=== PATIENT | female | born 1950 | race Two or more races ===

== ENCOUNTER 2021-07-31 12:46 | Emergency (ER) | payer MEDICARE, OTHER ==
[~2021-07-31] VITALS: Ht 160 cm; Wt 90.0 kg
[2021-07-31] MEDS ORDERED: GABAPENTIN100 MG PO ×2 (17:03→17:04)
[2021-07-31 17:35] VITALS: BP 187/77
[2021-08-02] MEDS ORDERED: GABAPENTIN100 MG PO (15:18)
== END 2021-07-31 17:35 | disposition home or self-care (01) ==
LOC: ED 12:46
DX: G62.9 Polyneuropathy, unspecified (principal); E78.00 Pure hypercholesterolemia, unspecified

== ENCOUNTER 2024-03-30 10:17 | Inpatient (IN) | payer MEDICARE, OTHER ==
[~2024-03-30] VITALS: Ht 160 cm; Wt 77.1 kg
[2024-03-30] VITALS (46 sets, daily range): BP systolic 73–184; BP diastolic 39–98
[~2024-03-30 10:17] MED LIST: GABAPENTIN100 MG PO
--- NOTE | 2024-03-30 10:21 | NUR ---
PT TO ROOM VIA WC
[2024-03-30] MEDS ORDERED: cefTRIAXone SODIUM 2 GM in SODIUM CHLORIDE 0.9% 100 ML IV ONE (10:35)
[2024-03-30] MEDS ORDERED: AZITHROMYCIN 500 MG in SODIUM CHLORIDE 0.9% 250 ML IV ONE (10:40)
[2024-03-30] MEDS ORDERED: IPRATROPIUM-Albuterol 0.5MG-2.5MG/3 ML NEB ONE ×2 (10:40)
[2024-03-30] MEDS ORDERED: methylPREDNISolone SODIUM SUCC 125 MG/2 ML SDV IV ONE (10:40)
[2024-03-30 10:54] LABS: BASO% 0.3 % (0-3); EOS% 0.7 % (0-8); HEMATOCRIT 39.1 % (37.0-47.0); HEMOGLOBIN 12.4 g/dl (12.0-16.0); IMMATURE GRANULOCYTES 0.5 % (0.0-5.0); LYMPH% 9.9 % (15-41); MEAN CELL VOLUME 85.6 fL CALC (80.0-100.0); MEAN CORPUSCULAR HGB 27.1 pG CALC (26.0-32.0); MEAN CORPUSCULAR HGB CONC 31.7 g/dL CAL (32.0-36.0); MONO% 5.1 % (2-13); NEUT# 9.6 thou/uL (2.00-7.15); NEUT% 83.5 % (42-76); RED BLOOD COUNT 4.57 mill/uL (4.20-5.60); RED CELL DISTRI WIDTH 12.8 % (11.5-15.5)
[2024-03-30 11:05] LABS: ALBUMIN 4.1 g/dL (3.2-5.0); ALKALINE PHOSPHATASE 71 u/l (38-126); ANION GAP 13 (6-22 (CALC)); BILIRUBIN, TOTAL 0.4 mg/dL (0.02-1.3); BUN 14 mg/dL (8-23); BUN/CREATININE RATIO 26 (12-20 (CALC)); CARBON DIOXIDE 23 mmol/l (22-30); CHLORIDE 107 mmol/l (95-108); CREATININE 0.5 mg/dL (0.5-1.0); ESTIMATED GFR 99 ML/MIN (>=90 (CALC)); POTASSIUM 3.9 mmol/l (3.5-5.1); SGOT/AST 29 u/l (9-36); SODIUM 139 mmol/l (137-146); TOTAL PROTEIN 7.4 g/dL (6.3-8.2)
--- NOTE | 2024-03-30 11:27 | NUR ---
PT RESTING NO NEEDS AT THIS TIME
[2024-03-30] MEDS ORDERED: ATORVASTATIN CA10 MG PO (11:44)
[2024-03-30] MEDS ORDERED: VENTOLIN HFA108 MCG (11:44)
[2024-03-30] MEDS ORDERED: AMLODIPINE BESYL5 MG PO (11:45)
[2024-03-30] MEDS ORDERED: LEVOTHYROXIN112 MC1 PO (11:45)
[2024-03-30] MEDS ORDERED: IPRATROPIUM-Albuterol 0.5MG-2.5MG/3 ML NEB PRN (12:00)
[2024-03-30] MEDS ORDERED: ACETAMINOPHEN 325 MG/TAB PO PRN (12:00)
[2024-03-30] MEDS ORDERED: MAGNESIUM HYDROXIDE 30 ML UDC PO PRN (12:00)
[2024-03-30] MEDS ORDERED: SODIUM CHLORIDE 0.9% 1,000 ML IV PRN (12:00)
[2024-03-30] MEDS ORDERED: ALBUTEROL SULFATE 8 GM INH IN PRN (12:55)
--- NOTE | 2024-03-30 13:00 | NUR ---
PT RECEIVED FROM ED. PT AMBULATED TO BATHROOM INDEPENDENTLY. PATIENT IS ON 3 L NC RESTING IN BED WITH SON AT THE BEDSIDE.
--- NOTE | 2024-03-30 14:00 | NUR ---
PT IS LAYING IN BED AWAKE
--- NOTE | 2024-03-30 16:02 | NUR ---
PATIENT IS LAYING IN BED WATCHING TV. GRANDSON AT THE BEDSIDE.
--- NOTE | 2024-03-30 18:07 | NUR ---
PT IS RESTING IN BED WATCHING TV.
--- NOTE | 2024-03-30 20:18 | NUR ---
PT RESTING IN BED WATCHING TV, NO SIGNS OF DISTRESS NOTED, RESP EVEN AND UNLABORED. PT ALERT AND ORIENTED X4, DISCUSSED POC, PT IS ON 02 3L NC, SATS 91% STEAMER TENDER COUGH, INCENTIVE SPIROMETER BROUGHT TO BEDSIDE, EDUCATED ON IT'S USE, DEMONSTRATED IT'S USE AND REACHED 500ML. PT MEDICATED PER SEP, SKIN INTACT, ASSESSMENT COMPLETED, CALL LIGHT IN REACH,POC ONGOING.
[2024-03-30] MEDS ORDERED: ATORVASTATIN CALCIUM 10 MG/TAB PO SCH (21:00)
[2024-03-30] MEDS ORDERED: methylPREDNISolone Sod Succ 40 MG/ML SDV IV SCH (21:00)
[2024-03-30] MEDS ORDERED: ENOXAPARIN SODIUM 40 MG/0.4 ML SYR SC SCH (21:00)
--- NOTE | 2024-03-30 22:00 | NUR ---
NOTED BP ELEVATED, ENTERED ROOM PT RESTING IN BED WITH EYES CLOSED, EASILY AROUSED TO VERBAL STIMULI, BP CUFF OFF, REPLACED. RECHECKED BP, WNL. CALL LIGHT IN REACH, POC ONGOING.
[2024-03-31] VITALS (21 sets, daily range): BP systolic 95–144; BP diastolic 45–81
--- NOTE | 2024-03-31 | NUR ---
PT RESTING IN BED WITH EYES CLOSED, NO SIGNS OF DISTRESS NOTED, RESP EVEN AND UNLABORED. CALL LIGHT IN REACH, POC ONGOING.
--- NOTE | 2024-03-31 02:00 | NUR ---
PT RESTING IN BED WITH EYES CLOSED, NO SIGNS OF DISTRESS NOTED, RESP EVEN AND UNLABORED. CALL LIGHT IN REACH, POC ONGOING.
[2024-03-31] MEDS ORDERED: LEVOTHYROXINE SODIUM 112 MCG/TAB PO SCH (06:00)
--- NOTE | 2024-03-31 06:00 | NUR ---
PT MEDICATED PER MAR, DENIES ANY NEEDS OR COMPLAINTS AT THIS TIME. CALL LIGHT IN REACH, POC ONGOING.
[2024-03-31 08:05] LABS: BASO% 0.1 % (0-3); HEMATOCRIT 36.2 % (37.0-47.0); HEMOGLOBIN 11.7 g/dl (12.0-16.0); IMMATURE GRANULOCYTES 0.5 % (0.0-5.0); LYMPH% 10.1 % (15-41); MEAN CELL VOLUME 86.6 fL CALC (80.0-100.0); MEAN CORPUSCULAR HGB CONC 32.3 g/dL CAL (32.0-36.0); NEUT# 11.4 thou/uL (2.00-7.15); NEUT% 84.3 % (42-76); RED BLOOD COUNT 4.18 mill/uL (4.20-5.60)
[2024-03-31 08:26] LABS: ALBUMIN 3.4 g/dL (3.2-5.0); BILIRUBIN, TOTAL 0.4 mg/dL (0.02-1.3); CREATININE 0.5 mg/dL (0.5-1.0); MAGNESIUM 1.6 mg/dL (1.6-2.3); POTASSIUM 4.5 mmol/l (3.5-5.1); TOTAL PROTEIN 6.6 g/dL (6.3-8.2)
--- NOTE | 2024-03-31 08:38 | NUR ---
PT UP SITTING ON SIDE OF BED EATING BREAKFAST. PATIENT A&OX4. BREATHING UNLABORED ON 3L NC. NO C/O OF PAIN OR SOB. IV IN LAC INFUSING FLUIDS PER EMAR;SITE CLEAN AND INTACT. MORNING MEDS TAKEN WITH NO ISSUES. BED IN LOWEST POSITION. CALL LIGHT WITHIN REACH; PT VERBALIZED UNDERSTANDING OF USE.NO NEEDS AT THIS TIME.
[2024-03-31] MEDS ORDERED: amLODIPine BESYLATE 5 MG/TAB PO SCH (09:00)
[2024-03-31] MEDS ORDERED: AZITHROMYCIN 500 MG in SODIUM CHLORIDE 0.9% 250 ML IV SCH (11:00)
--- NOTE | 2024-03-31 12:19 | NUR ---
PT SITTING UP IN BED EATING LUNCH. BREATHING UNLABORED ON 3L NC. FAMILY AT BEDSIDE. NO C/O OF PAIN OR SOB. BED IN LOWEST POSITION. CALL LIGHT WITHIN REACH;PT VERBALIZED UNDERSTANDING OF USE. NO NEEDS AT THIS TIME.
--- NOTE | 2024-03-31 16:01 | NUR ---
PT LYING IN BED USING INCENITIVE SPIROMETER. PT RE-EDUCATED ON THE CORRECT WAY OF USE AND REPOSITIONED TO HIGH FOWLERS FOR BETTER RESULTS. PT SHOWED UNDERSTANDING BY DEMINSTRATION AND SHOWS IMPROVEMENT WITH USE. PT BUMPED UP FROM 500 TO 1500 A RESULT. FAMILY AT BEDSIDE. BED IN LOWEST POSITION. CALL LIGHT WITHIN REACH. NO NEEDS AT THIS TIME.
--- NOTE | 2024-03-31 20:00 | NUR ---
PT AWAKE USING THE PHONE ON ROUNDS. O2 VIA NC. VSS. NO DISTRESS.
--- NOTE | 2024-03-31 22:00 | NUR ---
PT RESTING QUIETLY, NO DISTRESS, NO COMPLAINTS.
[2024-04-01] VITALS (28 sets, daily range): BP systolic 89–153; BP diastolic 36–98
--- NOTE | 2024-04-01 | NUR ---
PT OOB TO BR. AMBULATE WITH STEADY GAIT. PT REMOVED O2 TO AMBULATE TO BR. ON RETURN FROM BR O2 SAT 76%. O2 REPLACED VIA NC AND SAT GRADUALLY INCREASED TO 95%. PORTABLE O2 TANK PROVIDED FOR USE IF OOB TO BR.
--- NOTE | 2024-04-01 02:25 | NUR ---
PT IN NSR WITH HR 71 FOLLOWED BY SINUS ARRYTHMIA THEN SINUS ARLENE -HR 58. PT SLEEPING, SNORING RESPIRATIONS NOTED. PT EASILY AROUSED. DENIES DISCOMFORT.
--- NOTE | 2024-04-01 04:00 | NUR ---
PT RESTING. NO DISTRESS. ASSISTED WITH REPOSITIONING. WARM BLANKET PROVIDED.
--- NOTE | 2024-04-01 05:49 | NUR ---
ASSISTED PT TO BR WITH PORTABLE O2. O2 SAT DIPPED TO 80%. SAT IMPROVED WITH DEEP BREATHING WITH O2 AT 2L VIA NC TO 92%.
[2024-04-01 06:02] LABS: HEMATOCRIT 33.9 % (37.0-47.0); HEMOGLOBIN 10.9 g/dl (12.0-16.0); MEAN CELL VOLUME 86.7 fL CALC (80.0-100.0); MEAN CORPUSCULAR HGB 27.9 pG CALC (26.0-32.0); MEAN CORPUSCULAR HGB CONC 32.2 g/dL CAL (32.0-36.0); RED BLOOD COUNT 3.91 mill/uL (4.20-5.60)
[2024-04-01 06:09] LABS: ALBUMIN 3.3 g/dL (3.2-5.0); BILIRUBIN, TOTAL 0.3 mg/dL (0.02-1.3); CREATININE 0.5 mg/dL (0.5-1.0); MAGNESIUM 1.7 mg/dL (1.6-2.3); POTASSIUM 4.2 mmol/l (3.5-5.1); TOTAL PROTEIN 6.3 g/dL (6.3-8.2)
--- NOTE | 2024-04-01 07:25 | NUR ---
Received report from Coleen Angeles RN. Patient resting with nasal cannula. Reviewed plan of care with outgoing nurse. Understood plan of care, assumed care of patient
--- NOTE | 2024-04-01 08:35 | NUR ---
Patient resting at bedside with eyes open. assisted with setting breakfast tray. Nasal cannula remains in place.
--- NOTE | 2024-04-01 09:35 | NUR ---
Patient resting at bedside. Assisted patient to restroom. patient requested to rest on the recliner for the day.
--- NOTE | 2024-04-01 10:25 | NUR ---
Patient resting on recliner. Spoke with respiratory concerning six minute walk test. Respiratory had attempted to wean patient from oxygen for 15 mins prior to 6 minute walk study
--- NOTE | 2024-04-01 11:21 | NUR ---
REMOVED PT FROM O2, SPO2 AT REST DROPPED TO 83, AFTER WALKING TO BATHROOM ONJ RA WITH RN SPO2 WAS 73, PT NOT A CANDIDATE FOR 6 MINUTE WALK TEST
--- NOTE | 2024-04-01 11:31 | NUR ---
REVIEWED RESPIRATORY PLAN OF PERFORMING 6 MIN WALK STUDY. PER RESPIRATORY, PATIENT UNABLE TO PERFORM 6 MIN WALK STUDY DUE TO O2 SATS OF BEING IN 70S. DR. OLIVER BARAHONA.
--- NOTE | 2024-04-01 12:38 | NUR ---
PATIENT COMPLETED PULMONARY CONSULT WITH DR. BOYD. SEE NEW ORDERS. PATIENT REMAIN RESTING ON RECLINER.
--- NOTE | 2024-04-01 13:15 | NUR ---
XRAY PERFORMED AND COMPLETED PORTABLE CHEST X-RAY. PATIENT RESTING WITH EYES OPEN
--- NOTE | 2024-04-01 14:42 | NUR ---
PATIENT RESTING ON RECLINER
--- NOTE | 2024-04-01 15:12 | NUR ---
PATIENT RESTING WITH EYES OPEN
--- NOTE | 2024-04-01 16:16 | NUR ---
PATIENT RESTING ON RECLINER
--- NOTE | 2024-04-01 17:34 | NUR ---
PATIENT RESTING AT BEDSIDE. GRANDSON AT BEDSIDE
--- NOTE | 2024-04-01 18:23 | NUR ---
PATIENT RESTING ON RECLINER WATCHING TELEVISION.
--- NOTE | 2024-04-01 18:45 | NUR ---
REVIEW PLAN OF CARE WITH FREDERICK Bullard LPN. INCOMING NURSE UNDERSTAND PLAN. ENDORSE CARE TO FREDERICK Bullard LPN
--- NOTE | 2024-04-01 19:20 | NUR ---
sitting in bedside chair. denies resp diff. o2 cont per nc. central office operator shows sinus rhythm occas pvcs. po fluids taken well. voids per bathroom. fall precautions cont.
--- NOTE | 2024-04-01 21:00 | NUR ---
amb to br then back to chair. sao2 85%. extension tubing on o2. denies distress.
[2024-04-02] VITALS (13 sets, daily range): BP systolic 104–152; BP diastolic 60–84
--- NOTE | 2024-04-02 00:01 | NUR ---
eyes closed. no distress. o2 cont.
--- NOTE | 2024-04-02 02:00 | NUR ---
resting quietly. no apparent distress. concrete hopper operator shows sinus rhythm pvcs.
--- NOTE | 2024-04-02 04:00 | NUR ---
resting quietly. no distress.
--- NOTE | 2024-04-02 06:00 | NUR ---
awakens easily. denies distress. cardiac exercise specialist shows sinus rhythm pvcs.
--- NOTE | 2024-04-02 07:55 | NUR ---
REPORT RECEIVED FROM NIGHT RN. PT SLEPT IN CHAIR ALL NIGHT. PT IS A/O. ON2LNC, TURNED DOWN TO 1L AND SATTING 92% ON 1LNC. ACCORDING TO NIGHT NURSE, PT DESATS TO 80'S WHEN AMBULATING TO RESTROOM EVEN WITH O2. LUNG SOUNDS COARSE THROUGHOUT. HEART SOUNDS S1S2; PT IS NSR ON MONITOR. BS ACTIVE. ABDOMEN SOFT/NON-TENDER. PT REPORTS LAST BM YESTERAY. PULSES STRONG ALL EXTREMETIES. SKIN W/M/I. PT DENIES ANY PAIN OR NEEDS. DR. VALDES AT BEDSIDE TO ASSESS PT. PT GIVEN BREAKFAST TRAY. CALL LIGHT IN REACH. VSS.
[2024-04-02 08:18] LABS: HEMATOCRIT 36.7 % (37.0-47.0); HEMOGLOBIN 11.6 g/dl (12.0-16.0); MEAN CELL VOLUME 87.6 fL CALC (80.0-100.0); MEAN CORPUSCULAR HGB 27.7 pG CALC (26.0-32.0); MEAN CORPUSCULAR HGB CONC 31.6 g/dL CAL (32.0-36.0); RED BLOOD COUNT 4.19 mill/uL (4.20-5.60); RED CELL DISTRI WIDTH 12.7 % (11.5-15.5)
[2024-04-02 08:33] LABS: ALBUMIN 3.4 g/dL (3.2-5.0); BILIRUBIN, TOTAL 0.2 mg/dL (0.02-1.3); CREATININE 0.5 mg/dL (0.5-1.0); POTASSIUM 4.1 mmol/l (3.5-5.1); TOTAL PROTEIN 6.5 g/dL (6.3-8.2)
--- NOTE | 2024-04-02 09:15 | NUR ---
PT REMAINS SITTING IN CHAIR. DENIES ANY NEEDS. FAMILY AT BEDSIDE.
--- NOTE | 2024-04-02 10:32 | NUR ---
PT UP TO RESTROOM TO VOID AND GET LEANED UP. PT DECLINED ASSISTANCE, HAS FAMILY AT BEDSIDE TO HELP.
--- NOTE | 2024-04-02 11:13 | NUR ---
PT TAKEN TO ULTRASOUND FOR ORDERED ECHOCARDIOGRAM. PT ON O2 MONITOR AND 2LNC. INSTRUMENT ASSEMBLY SUPERVISOR AWARE THAT PT'S O2 DROPS WITH ACTIVITY.
--- NOTE | 2024-04-02 12:08 | NUR ---
PT BACK FROM ECHO; TOLERATED WELL. SITTING IN BED ON 2LNC EAING LUNCH. CALL LIGHT IN REACH. VSS.
[2024-04-02] MEDS ORDERED: LEVOFLOXACIN750 MG PO (12:30)
[2024-04-02] MEDS ORDERED: PREDNISONE10 MG PO (12:31)
--- NOTE | 2024-04-02 13:31 | NUR ---
PT GIVEN DISCHARGE EDUCATION. EXPLAINED USE OF HOME O2 WELL O2 MONITORING. PT AND GRANDSON VERBALIZED UNDERSTANDING OF HOW TO USE OXYGEN TANK. PT AWARE TO CALL [facility] SHE GETS HOME. PT EDUCATED ON NEW SCRIPTS. ALL BELINGS GATHERED AND SENT WITH PT. IV REMOVED. PT TAKEN TO MAIN ENTRANCE IN WHEELCHAIR ON HER OWN OXYGEN TANK. PT IN STABLE CONDITION ON DISCHARGE.
== END 2024-04-02 13:30 | disposition home health service (06) | DRG 193 ==
LOC: ED 10:17 → ED-I 11:21 → ED 11:21 → ICU 11:30
PROVIDERS: Family Medicine; Nurse Practitioner Family; ADMIT Internal Medicine; ATTEND Internal Medicine
DX: J18.9 Pneumonia, unspecified organism (principal); J96.01 Acute respiratory failure with hypoxia; I10 Essential (primary) hypertension; E78.5 Hyperlipidemia, unspecified; E03.9 Hypothyroidism, unspecified; Z20.822 Contact with and (suspected) exposure to COVID-19
CPT/HCPCS: J1650